=== PATIENT | male | born 1970 | race Caucasian/White ===

== ENCOUNTER 2018-01-11 20:01 | Emergency (ER) | payer OTHER ==
[~2018-01-11] VITALS: Ht 182.9 cm; Wt 105.4 kg
[2018-01-11 20:44] LABS: HEMATOCRIT 47.9 % (38.0-50.0); HEMOGLOBIN 16.5 G/DL (12.5-16.6); MCH 28.6 PG (29.0-34.0); MCHC 34.4 G/DL (30.0-36.0); PLATELET COUNT 241 K/uL (156-360); RBC DIS.WIDTH-CV 13.4 % (11.8-14.6); RBC DIS.WIDTH-SD 40.2 % (39-53); RED BLOOD COUNT 5.77 M/uL (4.00-5.50); WHITE BLOOD COUNT 8.4 K/uL (4.1-10.2)
[2018-01-11 20:52] LABS: ALBUMIN 4.6 g/dL (3.2-4.8); CHLORIDE 103 mEq/L (99-109); POTASSIUM 3.6 mEq/L (3.7-5.4); SODIUM 138 mEq/L (136-147)
[2018-01-11 20:55] LABS: GLUCOSE 95 mg/dL (70-99); TOTAL PROTEIN 7.7 g/dL (6.4-8.3)
[2018-01-11 20:56] LABS: TOTAL BILIRUBIN 1.9 mg/dL (0.0-1.0)
[2018-01-11 20:58] LABS: ALKALINE PHOSPHATASE 77 IU/L (3-129); CREATININE 1.7 mg/dL (0.6-1.3); GFR ESTIMATE (CALCULATED) 46 mL/min/ (58.99-99999)
[2018-01-11 20:59] LABS: UREA NITROGEN (BUN) 22 mg/dL (9-23)
[2018-01-11 21:00] LABS: AST (GOT) 20 IU/L (2-34)
[2018-01-11 21:01] LABS: ALT (GPT) 25 IU/L (3-49); CREATINE KINASE 354 IU/L (1-294)
[2018-01-11 21:49] LABS: APPEARANCE CLEAR ((CLEAR)); BILIRUBIN NEGATIVE; BLOOD SMALL; COLOR YELLOW ((YELLOW)); GLUCOSE (STRIP) NEGATIVE; KETONES NEGATIVE; LEUKOCYTES NEGATIVE; NITRITE NEGATIVE; PROTEIN (STRIP) NEGATIVE; SPECIFIC GRAVITY 1.016 (1.000-1.030)
[2018-01-11 21:54] LABS: BACTERIA RARE /HPF; EPITHELIAL CELLS NONE SEEN /HPF; MUCUS NONE SEEN /LPF; RED BLOOD CELLS 0-5 /HPF (0-5); UCUL ADDED? NO; WHITE BLOOD CELLS 0-5 /HPF (0-5)
[2018-01-11] MEDS ORDERED: ZOFRAN ODT4 MG PO (22:02)
[2018-01-11 23:01] VITALS: BP 144/88
== END 2018-01-11 23:02 | disposition home or self-care (01) ==
LOC: EME 20:01 → EXP 20:01
PROVIDERS: Physician Assistant
DX: T67.5XXA Heat exhaustion, unspecified, initial encounter (principal); E86.0 Dehydration; X30.XXXA Exposure to excessive natural heat, initial encounter; Y93.64 Activity, baseball; Y92.320 Baseball field as the place of occurrence of the external cause; Z88.0 Allergy status to penicillin
CPT/HCPCS: 80053; 81003; 82550; 85027; 99281; 99285; J2405; J7030